=== PATIENT | female | born 1980 | race Caucasian/White ===

== ENCOUNTER 2020-06-29 16:50 | Inpatient (IN) | payer BC, SELFPAY ==
[~2020-06-29] VITALS: Ht 165.1 cm; Wt 136.5 kg
[2020-06-29 16:51] VITALS: Ht 165.1 cm; Wt 136.5 kg
[2020-06-29 19:17] LABS: CALCIUM 8.7 mg/dL (8.5-10.1); CARBON DIOXIDE 28.3 mmol/L (21-32); CHLORIDE SERUM 102 mmol/L (98-107); CREATININE SERUM 0.8 mg/dL (0.6-1.0); GFR1 > 60 mL/min; GLUCOSE SERUM 100 mg/dL (74-106); POTASSIUM SERUM 3.5 mmol/L (3.5-5.1); SODIUM SERUM 138 mmol/L (136-145)
[2020-06-29 19:22] LABS: ALBUMIN 3.5 g/dL (3.4-5.0); ALKALINE PHOSPHATASE 116 U/L (46-116); ALT/SGPT 51 U/L (14-59); AST/SGOT 24 U/L (15-37); BILIRUBIN TOTAL 0.5 mg/dL (0.20-1.00); TOTAL PROTEIN, SERUM 7.3 g/dL (6.4-8.2)
[2020-06-29 20:05] LABS: BASOPHIL % 0.3 % (0-2); PLATELET COUNT 263 x10^3mcL (130-400); RED CELL DISTRIBUTION WIDTH 12.4 % (11.5-14.5)
[2020-06-29 21:38] LABS: UA SPECIFIC GRAVITY <=1.005 (1.005-1.035); microscopic required? YES; urine erythrocyte NEGATIVE (NEGATIVE)
[2020-06-29 22:10] LABS: CHOLESTEROL/HDL RATIO 4.9; MAGNESIUM 2.1 mg/dL (1.8-2.4); PHOSPHOROUS 2.9 mg/dL (2.5-4.9)
[2020-06-29 22:16] LABS: T3 TOTAL 1.25 ng/mL
[2020-06-29 22:21] LABS: FREE T4 1.37 ng/dL (0.76-1.46); FREE THYROXINE INDEX 4.3 ug/dL (1.4-4.5); T4(THYROXINE) 11.5 ug/dL (4.7-13.3)
[2020-06-29 23:57] VITALS: BP 106/45
[2020-06-30 06:04] VITALS: BP 121/77; BP 98/44
[2020-06-30 08:13] VITALS: BP 115/66
[2020-06-30 09:09] LABS: BASOPHIL % 0.3 % (0.2-1.3); PLATELET COUNT 251 x10^3mcL (179-408); RED CELL DISTRIBUTION WIDTH 13.2 % (12.3-17.7)
[2020-06-30 09:44] LABS: CALCIUM 8.8 mg/dL (8.5-10.1); CARBON DIOXIDE 26.4 mmol/L (21-32); CHLORIDE SERUM 102 mmol/L (98-107); CREATININE SERUM 0.8 mg/dL (0.6-1.0); GFR1 > 60 mL/min; GLUCOSE SERUM 84 mg/dL (74-106); POTASSIUM SERUM 3.6 mmol/L (3.5-5.1); SODIUM SERUM 141 mmol/L (136-145)
[2020-06-30 11:53] VITALS: BP 111/71
[2020-06-30 12:34] LABS: C REACTIVE PROTEIN 2.9 mg/dL (<=0.9)
[2020-06-30 15:38] VITALS: BP 118/84
[2020-06-30 20:20] VITALS: BP 105/60
[2020-07-01 05:26] VITALS: BP 111/43
[2020-07-01 09:06] VITALS: BP 122/69
[2020-07-01 11:42] LABS: CALCIUM 8.9 mg/dL (8.5-10.1); CARBON DIOXIDE 29.3 mmol/L (21-32); CHLORIDE SERUM 106 mmol/L (98-107); CREATININE SERUM 0.8 mg/dL (0.6-1.0); GFR1 > 60 mL/min; GLUCOSE SERUM 86 mg/dL (74-106); PHOSPHOROUS 2.4 mg/dL (2.5-4.9); POTASSIUM SERUM 3.9 mmol/L (3.5-5.1); SODIUM SERUM 140 mmol/L (136-145)
[2020-07-01 11:47] LABS: BASOPHIL % 0.3 % (0.2-1.3); PLATELET COUNT 254 x10^3mcL (179-408); RED CELL DISTRIBUTION WIDTH 13.3 % (12.3-17.7)
[2020-07-01 12:24] VITALS: BP 120/75
[2020-07-01 13:33] VITALS: BP 120/75
[2020-07-01] MEDS ORDERED: XARELTO15 M1 PO (13:38)
[2020-07-01] MEDS ORDERED: XARELTO20 M1 PO (13:39)
== END 2020-07-01 16:15 | disposition home or self-care (01) | DRG 177 ==
LOC: ED 16:50 → DU 20:22
PROVIDERS: Emergency Medicine; ADMIT Family Medicine; ATTEND Family Medicine
DX: U07.1 COVID-19 (principal); I26.99 Other pulmonary embolism without acute cor pulmonale; Z68.42 Body mass index [BMI] 45.0-49.9, adult; Z71.3 Dietary counseling and surveillance; E66.01 Morbid (severe) obesity due to excess calories; Z83.3 Family history of diabetes mellitus; E78.1 Pure hyperglyceridemia
CPT/HCPCS: 36600; 83880; 84439; 85378; G0378; J1644; J1885; J7030; Q9967; U0003